=== PATIENT | female | born 1930 | race Caucasian/White ===

== ENCOUNTER 2019-09-23 12:54 | Emergency (ER) | payer MEDICARE ==
[~2019-09-23] VITALS: Ht 152.4 cm; Wt 44.0 kg
--- OUTSIDE RECORDS SUMMARY | ~2019-09-23 | XMS | Encounter Summary ---
Demographics + + + | Address | [address] | | | [place] [address] | + + + | Home Phone | | + + + | Preferred Language | Unknown | + + + | Marital Status | | + + + | Mosque Affiliation | Unknown | + + + | Race | Unknown | + + + | Ethnic Group | Unknown | + + + Author + + + | Author | [facility] | | | and [place] | + + + | Organization | [facility] | | | and [place] | + + + | Address | Unknown | + + + | Phone | Unavailable | + + + Support + + + + + | Name | Relationship | Address | Phone | + + + + + | Vicente Domínguez | NEGIN | [place] | | | | | [phone] | | + + + + + | Dank Domínguez | ECON | [address] | | | | | [place] | | | | | [address] | | + + + + + Care Team Providers + +------+ + | Care Pearler Name | Role | Phone | + +------+ + | Yfn Mitchell MD | PCP | | + +------+ + Reason for Referral Evaluate & Treat (Routine) +--------+ + + + + + | Status | Reason | Specialty | Diagnoses / | Referred By | Referred To | | | | | Procedures | Contact | Contact | +--------+ + + + + + | Closed | Specialty | Physical | Diagnoses | Seth, | | | | Services | Therapy | Lumbar | Dillon Stone MD | | | | Required | | spinal | [address] | | | | | | stenosis | [address] | | | | | | Lumbar | [place], | | | | | | degenerative | [place] [address] | | | | | | disc | Phone: | | | | | | disease | [phone] | | | | | | Spondylolist | Fax: | | | | | | hesis of | [phone] | | | | | | lumbar | | | | | | | region | | | | | | | Lumbar | | | | | | | radiculopath | | | | | | | y | | | +--------+ + + + + + Rehabilitation (Routine) +--------+ + + + + + | Status | Reason | Specialty | Diagnoses / | Referred By | Referred To | | | | | Procedures | Contact | Contact | +--------+ + + + + + | Closed | Specialty | Physical | Diagnoses | Ann, | Silvino, | | | Services | Medicine and | Lumbar | Dillon Stone MD | Kev Alexis MD | | | Required | Rehabilitatio | spinal | [address] | | | | n | stenosis | [address] | [address] [place] | | | | | | [place], | [place], [place] | | | | | | [place] [address] | [address] Phone: | | | | | | Phone: | [phone] | | | | | | [phone] | Fax: | | | | | | Fax: | [phone] | | | | | | [phone] | | +--------+ + + + + + Reason for Visit + + + | Reason | Comments | + + + | Back Pain | low | + + + | Leg Pain | right | + + + | Numbness | right foot | + + + | Tingling | right foot | + + + Encounter Details +--------+---------+ + + + | Date | Type | Department | Care Team | Description | +--------+---------+ + + + | 02/17/ | Office | [facility] | Dillon Ann, | Lumbar spinal | | 2012 | Visit | MEDICINE | [address] | stenosis (Primary | | | | RE[facility] | [place] | Dx); Lumbar | | | | [address] | [address] | degenerative disc | | | | [place] [address] | | disease; | | | | [phone] | | Spondylolisthesis of | | | | | | lumbar region; | | | | | | Lumbar radiculopathy | +--------+---------+ + + + Social History + +-------+ +--------+ + | Tobacco Use | Types | Packs/Day | Years | Date | | | | | Used | | + +-------+ +--------+ + | Former Smoker | | | 47 | Quit: 02/17/1993 | + +-------+ +--------+ + + + +---------+ + | Alcohol Use | Drinks/Week | oz/Week | Comments | + + +---------+ + | Yes | 8 Cans of beer | 8.0 | | + + +---------+ + + + + | Sex Assigned at | Date Recorded | | | | + + + | Not on file | | + + + + + + + | Job Start Date | Occupation | Industry | + + + + | Not on file | Not on file | Not on file | + + + + + + + + | Travel History | Travel Start | Travel End | + + + + + + | No recent travel history available. | + + documented as of this encounter Last Filed Vital Signs + + + + + | Vital Sign | Reading | Time Taken | Comments | + + + + + | Blood Pressure | 160/90 | 02/17/2013 9:13 AM | | | | | PDT | | + + + + + | Pulse | 92 | 02/17/2013 9:13 AM | | | | | PDT | | + + + + + | Temperature | - | - | | + + + + + | Respiratory Rate | 12 | 02/17/2013 9:13 AM | | | | | PDT | | + + + + + | Oxygen Saturation | - | - | | + + + + + | Inhaled Oxygen | - | - | | | Concentration | | | | + + + + + | Weight | 45.9 kg (101 lb 4.8 | 02/17/2013 9:13 AM | | | | oz) | PDT | | + + + + + | Height | 152.4 cm (5') | 02/17/2013 9:13 AM | | | | | PDT | | + + + + + | Body Mass Index | 19.78 | 02/17/2013 9:13 AM | | | | | PDT | | + + + + + documented in this encounter Patient Instructions Patient Instructions Dillon Ann MD - 02/17/2013 10:19 AM PDTPhysical therapy has been prescribed. Please participate in physical therapy. If you have not be contacted for an a ppointment with physical therapy within one week, please contact the clinic. Once you have completed physical therapy please continue the home exercise program as outline by physical therapy, indefinitely. Please take the prescribed medication Nortriptyline. Taper up the dose of the medication as directed. Stop tapering up the medication at the lowest effective dose. If you have side effects to the medication, reduce the dose of the medication to the last dose that you were able to tolerate without side effects. Please attend the injection appointment with Kev Dubois MD. If his office has not co ntacted you within one week, to schedule the injection, please contact my clinic. Your inje ction will be performed at [facility]. Please take note of weather your pain is significantly reduced in the hours immediately following the injecti on. Return to the clinic in 6 weeks. 1 0:20 AM PDT documented in this encounter Progress Notes Dillon Ann MD - 02/17/2013 10:23 AM PDTThis office note has been dictated. Job ID# [id number] signed by Dillon Ann MD at 02/17/2013 1:48 PM Nathalia Zapata RN - 02/17/2013 9:34 AM PDTLow back pain radiates to RLE with numbness/tinlging in foot/l eg. Dillon Heard MD - 02/17/2013 12:00 AM PDT PHYSICAL MEDICINE AND REHAB [address] [place] [address] FAX: [phone] OFFICE VISIT PHYSICAL MEDICINE REHABILITATION CONSULT CONSULT REQUESTED BY: Ba Mitchell MD DATE OF SERVICE: 02/17/2013 PATIENT IDENTIFICATION: An 82-year-old female with low back pain that radiates into the rig ht lower extremity. HISTORY OF PRESENT ILLNESS: Ms. Domínguez indicates that she has low back pain. She states th at the pain radiates into the right lower extremity. She denies pain, numbness, paresthesia or weakness in the left lower extremity. She states that her pain is worse in the legs gurjit n it is in the low back. She states that her current pain level is an 8/10 on a numerical p ain scale. She states that her pain is constant in timing. She states that her pain is diff icult to describe in quality. She states simply that it "just hurts." She states that her p ain is increased with prolonged sitting and standing. She states that her pain is reduced b y medication and lying down. In the right lower extremity she states that the pain travels over the buttock, the posterior thigh and then involves all aspects of the right foreleg an d the entire right foot. She states that her symptoms are strongest over the lateral aspect of the right ankle. She indicates that she has numbness and paresthesia in the top, bottom and lateral aspect of the right foot. She indicates that she also notes some tingling over the medial aspect of the right foot. She reports weakness in the right lower extremity, wh ich she describes as her leg "giving out." She reports constipation related to current pain medication. She indicates that she had an episode of bowel incontinence as a result of aly rrhea a few weeks ago. She states that it happened one time and has not subsequently recurr ed. ALLERGIES 1. ROMI INHIBITORS. 2. TRAMADOL. 3. SHE QUESTIONS WHETHER OR NOT SHE IS ALLERGIC TO CORTICOSTEROIDS. She indicates that she had a rash as a result of prednisone that she is taking. she had a recent shoulder steroid injection 4 weeks ago with methylprednisolone and no allergic reaction. On her allergy list. there is a question of whether or not she is allergic to corticosteroi ds. She indicates that she had some itching when she was taking prednisone. She did have re cent shoulder injection. Notes would indicate that there was a methylprednisolone in the in jection. She is able to tolerate this injection without any allergic reaction. I would ques tion whether or not she truly has allergies to steroid. I discussed with her that most jacqui viduals are not allergic to steroid. They may, however, be allergic to the preservative gurjit t is in steroid. CURRENT MEDICATIONS 1. Mevacor 20 mg at bedtime. 2. Meloxicam 15 mg daily. 3. Robaxin 500 mg 4 times per day. 4. Lopressor 25 mg 2 times daily. 5. Prilosec 20 mg every morning. 6. Oxycodone 5 mg q.4h. p.r.n.. PAST MEDICAL HISTORY 1. She has a history of hypertension. 2. Hypercholesterolemia. 3. Gastroesophageal reflux disease. PAST SURGICAL HISTORY She denies history of surgeries in the past. Review of medical record indicates history of tonsillectomy. FAMILY HISTORY: She reports that mother had history of emphysema. She denies any other med ical problems in the family. SOCIAL MEDICAL HISTORY: She indicates that she drinks approximately 8 cans of beer per week . She denies use of illicit drugs. She states that she used to smoke but that she quit in . She states that she smoked for 45 years. REVIEW OF SYSTEMS Ms. Domínguez denies nausea, vomiting, diarrhea, constipation, fever, chills, shortness of b reath, chest pain, skin breakdown, rash, incontinence of bowel or bladder, saddle anesthesia , lymph gland swelling, or unexplained weight loss. All other review of systems negative. PHYSICAL EXAMINATION VITAL SIGNS: Heart rate 92, respiratory rate 12, blood pressure 160/90. GENERAL: In no a cute distress, accompanied by . Alert and oriented to person, place, time and situat ion. HEENT: Extraocular muscles intact. Pupils equally reactive to light and accommodation. Scle concha clear. NECK: Normal range of motion for age. Axial loading test negative. Spurling's test negative . HEART: Regular rate and rhythm. No murmurs, no gallops. LUNGS: Clear to auscultation bilaterally. No wheezing, no crackles. ABDOMEN: Nontender, no ndistended. Positive for bowel sounds. BACK: Slight asymmetry. Seated straight leg raise po sitive on the right, negative on the left. Eleuterio's test negative bilaterally. EXTREMITIES: Exam reveals no clubbing, cyanosis or edema in all 4 extremities. There is atr ophy of the muscles in both lower extremities, predominantly the right quadriceps. NEUROLO GICAL: Exam demonstrates brisk reflexes over the patella and Achilles bilaterally. No clonu s to either ankle. Babinski is downgoing bilaterally. There is 4/5 strength with knee exten jostin on the right compared to 5/5 on the left. There is 4+/5 knee flexion strength bilatera lly. There is 4/5 ankle dorsiflexion on the right compared to 5/5 on the left. There is 4/5 extensor hallucis longus strength on the right compared to 5/5 on the left. Coordination is intact throughout. IMAGING: Lumbar spine MRI imaging personally reviewed by me. This imaging was reviewed in detail with Ms. Domínguez today. This imaging demonstrates multilevel degenerative disk disea se. There is disk herniations at L2-L3, L3-L4, L4-5 and L5-S1. There is severe central pal l stenosis at L3-L4 and L4-L5. There is moderate central canal stenosis at L2-L3. There is grade 1 anterior listhesis of L4 on L5. There is posterior osteophyte complex and ligamentu m hypertrophy posteriorly at L2-L3, L4-5 and L3-4 contributing towards central canal stenos is. There is severe neural foraminal narrowing at L3-L4 on the right and to a slightly less er degree at L2-L3 on the right. There is moderate central canal stenosis at right L4-5 and L5-S1. ASSESSMENT 1. LUMBAR SPINAL STENOSIS, ICD-9 724.02. 2. 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 3. 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 4. CLINICAL PRESENTATION OF LUMBAR RADICULOPATHY, RIGHT L4, L5, and S1, ICD-9 724.4. PLAN: Ms. Domínguez has significant degeneration of her spine contributing towards neurologic involvement. She has spinal stenosis and neural foraminal narrowing. Likely has a combinat ion of spinal stenosis and radiculopathy contributing towards her symptoms. She has rather significant weakness in the right lower extremity. She will participate in physical therapy with core stabilization of the spine. Preferably aquatic based exercise. Therapy will also have left lower extremity strengthening exercises in hopes of returning some of her strength. In an effort to reduce some of the radicular sy mptoms that she is experiencing in the right lower extremity she will be started on medicat ion nortriptyline. Hopefully this will offer her reduction in neuropathic pain. She will cruz ve bilateral L5-S1 transforaminal epidural steroid injections in hopes of treating lumbar s laura stenosis and her radicular symptoms on the right. She will return to the clinic in 6 weeks' time to review her response to these treatments. If symptoms persist, future treatment considerations may include the addition of gabapentin to her therapy and repeating epidural steroid injections. If she does not have improvement in her symptoms with conservative management, likely will request neurosurgery consult. If on her return appointment she has worsening weakness in the lower extremities, will more r apidly advance her to neurosurgery evaluation. Approximately 60 minutes was spent [id number] today with Ms. Domínguez, over half of which was spent formulating and discussing her medical treatment plan. Thank you for allowing me to be involved in the care of your patient. If you have any quest ions regarding the care of Ms. Domínguez, please do not hesitate to call. Dillon Ann Jr, MD GEM / PAP JOB #: [id number] cc: Ba Mitchell MD Tdocumented in this encounter Plan of Treatment + + +--------+ + + | Name | Type | Priori | Associated Diagnoses | Order Schedule | | | | ty | | | + + +--------+ + + | Ambulatory referral | Outpatient | Routin | Lumbar spinal | Ordered: 02/17/2013 | | to Physical Medicine | Referral | e | stenosis | | | Rehab | | | | | + + +--------+ + + | Ambulatory referral | Outpatient | Routin | Lumbar spinal | Ordered: 02/17/2013 | | to Physical Therapy | Referral | e | stenosis Lumbar | | | | | | degenerative disc | | | | | | disease | | | | | | Spondylolisthesis of | | | | | | lumbar region | | | | | | Lumbar radiculopathy | | + + +--------+ + + documented as of this encounter Visit Diagnoses + + | Diagnosis | + + | Lumbar spinal stenosis - Primary Spinal stenosis, lumbar region, without neurogenic | | claudication | + + | Lumbar degenerative disc disease Degeneration of lumbar or lumbosacral intervertebral | | disc | + + | Spondylolisthesis of lumbar region Acquired spondylolisthesis | + + | Lumbar radiculopathy Thoracic or lumbosacral neuritis or radiculitis, unspecified | + + documented in this encounter
--- OUTSIDE RECORDS SUMMARY | ~2019-09-23 | XMS | Encounter Summary ---
Demographics + + + | Address | [address] | | | [place] [address] | + + + | Home Phone | | + + + | Preferred Language | Unknown | + + + | Marital Status | | + + + | Buddhist Affiliation | Unknown | + + + | Race | Unknown | + + + | Ethnic Group | Unknown | + + + Author + + + | Author | [facility] | | | and [place] | + + + | Organization | [facility] | | | and [place] | + + + | Address | Unknown | + + + | Phone | Unavailable | + + + Support + + + + + | Name | Relationship | Address | Phone | + + + + + | Vicente Domínguez | NEGIN | [place] | | | | | [address] | | + + + + + | Dank Domínguez | ECON | [address] | | | | | [place] | | | | | [address] | | + + + + + Care Team Providers + +------+ + | Care Sales Attendant Name | Role | Phone | + +------+ + | Yfn Mitchell MD | PCP | | + +------+ + Reason for Visit + + + | Reason | Comments | + + + | Medication Reaction | | + + + Encounter Details +--------+ + + + + | Date | Type | Department | Care Team | Description | +--------+ + + + + | 02/28/ | Telephone | [facility] | Nathalia Morris, | Medication Reaction | | 2012 | | MEDICINE | RN | | | | | RE[address] | | | | | | [address] | | | | | | [place] [address] | | | | | | [phone] | | | +--------+ + + + + Social History + +-------+ [...] + + documented as of this encounter Plan of Treatment Not on filedocumented as of this encounter Visit Diagnoses Not on filedocumented in this encounter"
--- OUTSIDE RECORDS SUMMARY | ~2019-09-23 | XMS | Encounter Summary ---
Demographics + + + | Address | [address] | | | [place] [address] | + + + | Home Phone | | + + + | Preferred Language | Unknown | + + + | Marital Status | | + + + | Sabianist Affiliation | Unknown | + + + | Race | Unknown | + + + | Ethnic Group | Unknown | + + + Author + + + | Author | [facility] | | | and [place] | + + + | Organization | [facility] | | | and [place] | + + + | Address | Unknown | + + + | Phone | Unavailable | + + + Support + + + + + | Name | Relationship | Address | Phone | + + + + + | Vicente Domínguez | NEGIN | [place] | | | | | [address] | | + + + + + | Dank Domínguez | ECON | [address] | | | | | [place] | | | | | [address] | | + + + + + Care Team Providers + +------+ + | Care Protection Engineer Name | Role | Phone | + +------+ + | Yfn Mitchell MD | PCP | | + +------+ + Reason for Visit + + + | Reason | Comments | + + + | Back Pain | no pain at this time | + + + Encounter Details +--------+---------+ + + + | Date | Type | Department | Care Team | Description | +--------+---------+ + + + | 12/27/ | Office | [facility] | Dillon Ann, | Lumbar spinal | | 2013 | Visit | MEDICINE | [address] | stenosis (Primary | | | | REH[address] | [place] | Dx); Lumbar | | | | [address] | [address] | radiculopathy; | | | | [place] [address] | | Lumbar degenerative | | | | [phone] | | disc disease; | | | | | | Spondylolisthesis of | | | | | | lumbar region | +--------+---------+ + + + Social History [...] + + + | Blood Pressure | 124/64 | 12/27/2013 9:40 AM | | | | | PST | | + + + + + | Pulse | 70 | 12/27/2013 9:40 AM | | | | | PST | | + + + + + | Temperature | - | - | | + + + + + | Respiratory Rate | 20 | 12/27/2013 9:40 AM | | | | | PST | | + + + + + | Oxygen Saturation | - | - | | + + + + + | Inhaled Oxygen | - | - | | | Concentration | | | | + + + + + | Weight | 49 kg (108 lb) | 12/27/2013 9:40 AM | | | | | PST | | + + + + + | Height | 152.4 cm (5') | 12/27/2013 9:40 AM | | | | | PST | | + + + + + | Body Mass Index | 21.09 | 12/27/2013 9:40 AM | | | | | PST | | + + + + + documented in this encounter Patient Instructions Patient Instructions Dillon Ann MD - 12/27/2013 10:18 AM PSTContinue Gabapentin 300 m g two capsules by mouth three times per day. Continue home exercise program as outlined by physical therapy. Follow up with your primary doctor for future refills of gabapentin. Return to the clinic as needed in the future should symptoms return. documented in this encounter Progress Notes Dillon Ann MD - 12/27/2013 10:20 AM PSTThis office note has been dictated. Job ID# [id number] signed by Dillon Ann MD at 12/27/2013 10:33 AM Renee Higgins RN - 12/27/2013 9:42 AM PSTPatient states 0/10 pain to lower back. Dillon Cerrato MD - 12/27/2013 12:00 AM [facility] PHYSICAL MEDICINE AND REHAB [address] [place] [address] FAX: [phone] OFFICE VISIT PHYSICAL MEDICINE REHABILITATION PROGRESS NOTE CONSULT REQUESTED BY: Yfn Mitchell MD DATE OF SERVICE: 12/27/2013 PATIENT IDENTIFICATION: An 83-year-old female with lumbar spinal stenosis. HISTORY OF PRESENT ILLNESS: The patient was last seen by me 06/28/2013. At that time her s ymptoms were minimal. Her symptoms were well controlled with medication and therapy. She re turns to the clinic today to review management of symptoms and for medication refill. The patient indicates that she is doing exceedingly well at this time. She reports that her current pain level is a 0/10 on a numerical pain scale. She indicates that she may have so me pain if she misses gabapentin dose. She indicates that when she has missed gabapentin in the past she experienced some pain. She indicates that as long as she takes gabapentin rou tinely that she has no pain. She denies any side effects to gabapentin. She denies dizzines s, sedation, swelling, weight change. She denies numbness, paresthesia or weakness in eithe r lower extremity. She denies bowel or bladder incontinence. She denies saddle anesthesia. Previously, she had some weakness in the lower extremities, which has improved since partic ipating in physical therapy. She notes that she has had returned strength and muscle growth in the lower extremities since participating in routine exercise program. She does a home exercise program on a daily basis. She indicates that essentially she has been back pain-fr ee for more than 3 months. ALLERGIES 1. ROMI INHIBITORS. 2. CORTICOSTEROIDS. 3. TRAMADOL. CURRENT MEDICATIONS 1. Gabapentin 300 mg, 2 tablets 3 times per day. 2. Calcium carbonate with vitamin D. 3. Vitamin D3. 4. Lovastatin 20 mg nightly. 5. Lopressor 25 mg 2 times daily. 6. Multivitamin 1 tablet daily. 7. Prilosec 20 mg every morning. REVIEW OF SYSTEMS: Ms. Domínguez denies nausea, vomiting, diarrhea, constipation, fever, chil ls, shortness of breath, chest pain, skin breakdown, rash, incontinence of bowel or bladder , saddle anesthesia, lymph gland swelling, or unexplained weight loss. All other review of systems negative. PHYSICAL EXAMINATION VITAL SIGNS: Heart rate 70, respiratory rate 20, blood pressure 124/64, weight 108 pounds, height 5 feet. GENERAL: No acute distress. Alert and oriented to person, place, time and situation. Accom panied by . Smiling, happy. HEENT: Extraocular muscles intact. Sclerae clear. NECK: Normal range of motion for age. Spurling's test negative. Axial loading test negative . BACK: Slight asymmetry. No tenderness to palpation. Seated straight leg raise negative b ilaterally. Eleuterio's test negative bilaterally. EXTREMITIES: Exam reveals no clubbing, cyanosis or edema in all 4 extremities. There appear s to be increased size of the gastroc muscles bilaterally. She indicates that she has been working out her legs on a daily basis. NEUROLOGICAL: Exam demonstrates intact memory, concentration and speech. Gait normal. Sensa tion intact to light touch and pinprick in lower extremities. Normal strength in lower extr emities with hip flexion, knee flexion, knee extension, ankle dorsiflexion, ankle plantar f lexion. Reflexes 1+ over patellae and Achilles bilaterally. No clonus to either ankle. DATABASE: No new imaging or laboratory data available for review at this time. IMPRESSION 1. LUMBAR SPINAL STENOSIS, ICD-9 724.02. 2. LUMBAR RADICULOPATHY, ICD-9 724.4. 3. 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 4. 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 PLAN: Ms. Domínguez's symptoms are currently quiescent. She has 0 pain out of 10. She has no complaints at this time. She has no weakness, no numbness. No problems with bowel or bladde r control. She reports improving lower extremity strength with home exercise program. At this point she will continue gabapentin. She should stay on this medication indefinitely . She indicates that when she misses a dose of the medication her pain is worse. With the medication she has no pain. She will continue gabapentin 300 mg 2 capsules 3 times per day. She was given a 3-month supply with 1 refill, in total 6 months' worth of medication. She i s instructed to follow up with Dr. Mitchell in the future for refills of her medication. She wa s instructed to continue home exercise program as outlined by Physical Therapy, on an indef inite basis. At this point there is no routine followup scheduled with the patient, mostly because she is doing so well. However, should she have exacerbation of symptoms, return of pain, weakness in the future, she was instructed that she should return to the clinic for f urther evaluation. She may return to the clinic as needed in the future. Approximately 20 minutes was spent [id number] today with Ms. Domínguez, over half of which was spent formulating and discussing her medical treatment plan. Thank you for allowing me to be involved in the care of your patient. If you have any questions regarding the care of Ms. Domínguez please do not hesitate to call. Dillon Ann Jr, MD [place] / YE JOB #: [id number] cc: Ba Mitchell MD Tdocumented in this encounter Plan of Treatment Not on filedocumented as of this encounter Visit Diagnoses + + | Diagnosis | + + | Lumbar spinal stenosis - Primary Spinal stenosis, lumbar region, without neurogenic | | claudication | + + | Lumbar radiculopathy Thoracic or lumbosacral neuritis or radiculitis, unspecified | + + | Lumbar degenerative disc disease Degeneration of lumbar or lumbosacral intervertebral | | disc | + + | Spondylolisthesis of lumbar region Acquired spondylolisthesis | + + documented in this encounter"
--- OUTSIDE RECORDS SUMMARY | ~2019-09-23 | XMS | Encounter Summary ---
Demographics + + + | Address | [address] | | | [place] [address] | + + + | Home Phone | | + + + | Preferred Language | Unknown | + + + | Marital Status | | + + + | Alevism Affiliation | Unknown | + + + | Race | Unknown | + + + | Ethnic Group | Unknown | + + + Author + + + | Author | [facility] | | | and [place] | + + + | Organization | [facility] | | | and [place] | + + + | Address | Unknown | + + + | Phone | Unavailable | + + + Support + + + + + | Name | Relationship | Address | Phone | + + + + + | Vicente Domínguez | NEGIN | [place] | | | | | [address] | | + + + + + | Dank Domínguez | ECON | [address] | | | | | [place] | | | | | [address] | | + + + + + Care Team Providers + +------+ + | Care In Store Demonstrator Name | Role | Phone | + [...] | | | | | | [place] [address] | | | | | | [phone] | | | +--------+ + + + [...]
--- OUTSIDE RECORDS SUMMARY | ~2019-09-23 | XMS | Encounter Summary ---
Demographics + + + | Address | [address] | | | [place] [address] | + + + | Home Phone | | + + + | Preferred Language | Unknown | + + + | Marital Status | | + + + | Sikh Affiliation | Unknown | + + + | Race | Unknown | + + + | Ethnic Group | Unknown | + + + Author + + + | Author | [facility] | | | and [place] | + + + | Organization | [facility] | | | and [place] | + + + | Address | Unknown | + + + | Phone | Unavailable | + + + Support + + + + + | Name | Relationship | Address | Phone | + + + + + | Vicente Domínguez | NEGIN | [place] | | | | | [address] | | + + + + + | Dank Domínguez | ECON | [address] | | | | | [place] | | | | | [address] | | + + + + + Care Team Providers + +------+ + | Care Stock Checker Name | Role | Phone | + +------+ + | Rafaela Ivey NP | PCP | | + +------+ + Encounter Details +--------+ + + + + | Date | Type | Department | Care Team | Description | +--------+ + + + + | 02/13/ | Orders Only | [facility] | Zay Mccartney MD | Low back pain | | 2012 | | NEUROSURGERY [address] | [address] | (Primary Dx); Right | | | | [address] | [place] [address] | leg pain | | | | [place] | [phone] | | | | | [address] | | | | | | [phone] | | | +--------+ + + + + Social History + +-------+ +--------+------+ | Tobacco Use | Types | Packs/Day | Years | Date | | | | | Used | | + +-------+ +--------+------+ | Never Assessed | | | | | + +-------+ +--------+------+ + + + | Sex Assigned at [...] as of this encounter Plan of Treatment + +---------+--------+ + + | Name | Type | Priori | Associated Diagnoses | Order Schedule | | | | ty | | | + +---------+--------+ + + | XR Lumbar Spine 4 + | Imaging | Routin | Low back pain | Expected: | | Vw | | e | Right leg pain | 02/13/2013, Expires: | | | | | | 02/13/2014 | + +---------+--------+ + + documented as of this encounter Visit Diagnoses + + | Diagnosis | + + | Low back pain - Primary Lumbago | + + | Right leg pain Pain in limb | + + documented in this encounter"
--- OUTSIDE RECORDS SUMMARY | ~2019-09-23 | XMS | Encounter Summary ---
Demographics + + + | Address | [address] | | | [place] [address] | + + + | Home Phone | | + + + | Preferred Language | Unknown | + + + | Marital Status | | + + + | Congregational Affiliation | Unknown | + + + | Race | Unknown | + + + | Ethnic Group | Unknown | + + + Author + + + | Author | [facility] | | | and [place] | + + + | Organization | [facility] [...] [place] | | | | | [address] | | + + + + + | Dank Domínguez | ECON | [address] | | | | | [place] | | | | | [address] | | + + + + + Care Team Providers + +------+ + | Care Flaring Machine Operator Name | Role | Phone | + +------+ + | Yfn Mitchell MD | PCP | | + +------+ + Reason for Visit + + + | Reason | Comments | + + + | Hip Pain | right | + + + Encounter Details +--------+---------+ + + + | Date | Type | Department | Care Team | Description | +--------+---------+ + + + | 06/28/ | Office | [facility] | Dillon Ann, | Lumbar spinal | | 2012 | Visit | MEDICINE | [address] | stenosis (Primary | | | | REH[address] | [place] | Dx); Lumbar | | | | [address] [place] | [address] | radiculopathy; | | | | [place] [address] | | Lumbar degenerative | | | | [phone] | | disc disease; | | | [...] + + + | Blood Pressure | 120/70 | 06/28/2013 9:32 AM | | | | | PDT | | + + + + + | Pulse | 64 | 06/28/2013 9:32 AM | | | | | PDT | | + + + + + | Temperature | - | - | | + + + + + | Respiratory Rate | 17 | 06/28/2013 9:32 AM | | | | | PDT | | + + + + + | Oxygen Saturation | - | - | | + + + + + | Inhaled Oxygen | - | - | | | Concentration | | | | + + + + + | Weight | 45.4 kg (100 lb) | 06/28/2013 9:32 AM | | | | | PDT | | + + + + + | Height | 152.4 cm (5') | 06/28/2013 9:32 AM | | | | | PDT | | + + + + + | Body Mass Index | 19.53 | 06/28/2013 9:32 AM | | | | | PDT | | + + + + + documented in this encounter Patient Instructions Patient Instructions Dillon Ann MD - 06/28/2013 9:53 AM PDTContinue the exercises ou tlined by physical therapy on a routine basis, indefinitely. Continue Gabapentin at current dose. Ask that future lab results also be sent to Dr. Dillon Ann MD (.)'s office. Return the clinic in 6 months or as needed.Electronically signed by Dillon Ann MD at 0 06/28/2013 9:54 AM PDT documented in this encounter Progress Notes Dillon Ann MD - 06/28/2013 9:55 AM PDTThis office note has been dictated. Job ID# [id number] signed by Dillon Ann MD at 06/28/2013 10:03 AM Renee Gabriel RN - 06/28/2013 9:35 AM PDTPatient complains of 4/10 pain to right hip. States she compl eted PT, and now does exercises at home. Patient has discontinued oxycodone. Dillon Heard MD - 06/28/2013 12: 00 AM PDT PHYSICAL MEDICINE AND REHAB [address] [place] [address] FAX: [phone] OFFICE VISIT PHYSICAL MEDICINE REHABILITATION PROGRESS NOTE CONSULT REQUESTED BY: Ba Mitchell MD DATE OF SERVICE: 06/28/2013 PATIENT IDENTIFICATION: An 82-year-old female with lumbar spinal stenosis. HISTORY OF PRESENT ILLNESS: Ms. Domínguez was last seen by me 04/26/2013. At that time it was felt that she had lumbar spinal stenosis, lumbar radiculopathy and lumbar degenerative dis k disease. She was prescribed increased dose of gabapentin. She was prescribed a course of physical therapy. She was asked to take docusate to manage constipation while on oxycodone. She returns to the clinic today to review management of her symptoms. Ms. Domínguez indicates that her pain is dramatically better. She has been able to discontinu e using methocarbamol. She has not taken any methocarbamol in over a month. She has been ab le to discontinue oxycodone. She has not taken any oxycodone in over a month. She states th at her pain is well controlled. She has been able to discontinue docusate since the constip ation resolved after oxycodone was discontinued. She reports that her pain is improved comp ared to when she was seen 2 months ago. She states that her current pain level is a 4/10 on a numerical pain scale. She states that her pain is constant in timing. She states that he r pain is dull in quality. She states that her pain is currently "tolerable." She has been able to stop using her single point cane. She reports that on rare occasion, maybe 1 day pe r week, she may have some paresthesia within her right foot, which only lasts minutes. She indicates that currently she has no back pain. She states that she has pain primarily locat ed in the right leg, usually in the thigh. Pain is increased by sitting. Pain is reduced by standing, walking, medication and being active. Overall she states that physical therapy has been an extreme help combined with current medication gabapentin. She denies numbness, weakness, bowel or bladder incontinence or dysfunction or saddle anesthesia. ALLERGIES 1. ROMI INHIBITORS. 2. CORTICOSTEROIDS. 3. TRAMADOL. CURRENT MEDICATIONS 1. Calcium with vitamin D. 2. Vitamin D3. 3. Gabapentin 300 mg 2 Capsules 3 times per day. 4. Mevacor 20 mg nightly. 5. Lopressor 25 mg 2 times daily. 6. Multivitamin once daily. 7. Omeprazole 20 mg every morning. REVIEW OF SYSTEMS Ms. Domínguez denies nausea, vomiting, diarrhea, constipation, fever, chills, shortness of b reath, chest pain, skin breakdown, rash, incontinence of bowel or bladder, saddle anesthesia , lymph gland swelling, edema, or unexplained weight loss. All other review of systems nega tive. PHYSICAL EXAMINATION VITAL SIGNS: Heart rate 64, respiratory rate 17, blood pressure 120/70, weight 100 pounds, height 5 feet. GENERAL: In no acute distress. Alert and oriented to person, place, time and situation. HE ENT: Extraocular muscles intact. Sclerae clear. NECK: Normal range of motion. Spurling's test negative. HEART: Regular rate and rhythm. No murmurs, no gallops. LUNGS: Clear to auscultation bilaterally. No wheezing, no crackles. ABDOMEN: Nontender. Po sitive for bowel sounds. BACK: Slight asymmetry. No focal tenderness to palpation. Seated straight leg raise negativ e bilaterally. Eleuterio's test negative. EXTREMITIES: Exam reveals no clubbing, cyanosis or edema. NEUROLOGICAL: Exam demonstrates stable strength in lower extremities. Gait steady. Sensation intact to light touch and pinp jamshid in both lower extremities. Reflexes 1+ over patellae and Achilles bilaterally. No clon us to either ankle. Her affect is normal, full. She is smiling, happy throughout entire his tory and exam. DATABASE: There is no new imaging or laboratory data available for review at this time. IMPRESSION 1. LUMBAR SPINAL STENOSIS, ICD-9 724.02. 2. LUMBAR RADICULOPATHY, ICD-9 724.4. 3. 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 4. SPONDYLOLISTHESIS IN LUMBAR SPINE, ICD-9 738.4. PLAN: Ms. Domínguez was instructed to continue home exercise program as outlined by physical therapy on a routine basis indefinitely. She may continue gabapentin routinely indefinitely as well. She was prescribed Gabapentin 300 mg 2 capsules 3 times per day. She is prescribe d #180 with 5 refills. She reports that she does routine laboratory tests with Dr. Stephen agudelo every 6 months. She is asked to make sure that a copy of these laboratory results were al so sent to my office. She will return to the clinic in 6 months' time to review her pain ma nagement, for refill of medication and to review laboratory testing to make sure that renal function remains stable and so dose adjustment is not necessary. She is instructed that hector agudelo may return to the clinic earlier should she have an exacerbation of symptoms. Approximately 25 minutes was spent cuxg-tq-tyqg today with Ms. Domínguez, over half of which was spent formulating and discussing her medical treatment plan. Thank you for allowing me to be involved in the care of your patient. If you have any quest ions regarding the care of Ms. Domínguez, please do not hesitate to call. Dillon Ann Jr, MD [facility] / [facility] JOB #: [id number] signed by Dillon Ann MD at 06/29/2013 9:22 AM PDTdocumen ritesh in this encounter Plan of Treatment Not [...] spondylolisthesis | + + documented in this encounter
--- OUTSIDE RECORDS SUMMARY | ~2019-09-23 | XMS | Encounter Summary ---
Demographics + + + | Address | [address] | | | [place] [address] | + + + | Home Phone | | + + + | Preferred Language | Unknown | + + + | Marital Status | | + + + | Caodaism Affiliation | Unknown | + + + | Race | Unknown | + + + | Ethnic Group | Unknown | + + + Author + + + | Author | [facility] | | | and [place] | + + + | Organization | [facility] | | | and [place] | + + + | Address | Unknown | + + + | Phone | Unavailable | + + + Support + + + + + | Name | Relationship | Address | Phone | + + + + + | Vicente Domínguez | NEGIN | [place] | | | | | [address] | | + + + + + | Dank Domínguez | ECON | [address] | | | | | [place] | | | | | [address] | | + + + + + Care Team Providers + +------+ + | Care Testing Projects Administrator Name | Role | Phone | + +------+ + | Yfn Mitchell MD | PCP | | + +------+ + Reason for Visit +--------+ + | Reason | Comments | +--------+ + | Other | APPOINTMENT CANCELLATION | +--------+ + Encounter Details +--------+ + + + + | Date | Type | Department | Care Team | Description | +--------+ + + + + | 02/17/ | Telephone | [facility] | Sami Mc | Other (APPOINTMENT | | 2012 | | NEUROSURGERY [address] | [address] | CANCELLATION) | | | | [facility] [address] | [address] | | | | | [place], [place] | [place] [address] | | | | | [address] | [phone] | | | | | [phone] | | | +--------+ + + + [...]
--- OUTSIDE RECORDS SUMMARY | ~2019-09-23 | XMS | Encounter Summary ---
Demographics + + + | Address | [address] | | | [place] [address] | + + + | Home Phone | | + + + | Preferred Language | Unknown | + + + | Marital Status | | + + + | Congregation Affiliation | Unknown | + + + | Race | Unknown | + + + | Ethnic Group | Unknown | + + + Author + + + | Author | [facility] | | | and [place] | + + + | Organization | [facility] | | | and [place] | + + + | Address | Unknown | + + + | Phone | Unavailable | + + + Support + + + + + | Name | Relationship | Address | Phone | + + + + + | Vicente Domínguez | NEGIN | [place] | | | | | [address] | | + + + + + | Dank Domínguez | ECON | [address] | | | | | [place] | | | | | [address] | | + + + + + Care Team Providers + +------+ + | Care Pharmacist In Charge Name | Role | Phone | + [...] | | | | | stenosis | [address] | | | | | | Lumbar | [place], | | | | | | degenerative | [place] [address] | | | | | | disc | Phone: | | | | | | disease | [phone] | | | | | | Spondylolist | Fax: | | | | | | hesis of | [phone] | | | | | | lumbar [...] | | | n | stenosis | [address] | [place] | | | | | | [place], | [place], [place] | | | | | | [place] [address] | [address] Phone: | | | | | | Phone: | [phone] | | | | | | [phone] | Fax: | | | | | | Fax: | [phone] | | | | | | [phone] | | +--------+ + + + + [...] + + | 02/17/ | Office | [facility] | Dillon Ann, | Lumbar spinal | | 2012 | Visit | MEDICINE | [address] | stenosis (Primary | | | | REH[address]ILIT[address] | [place] | Dx); Lumbar | | | | [address] | [address] | degenerative disc | | | | [place] [address] | | disease; | | | | [phone] | | Spondylolisthesis of | | | [...] Your inje ction will be performed at [facility]. Please take note of weather your pain is significantly reduced in the hours immediately following the injecti on. Return to the clinic in 6 weeks. 1 0:20 AM PDT documented in this encounter Progress Notes Dillon Ann MD - 02/17/2013 10:23 AM PDTThis office note has been dictated. Job ID# [id number] signed by Dillon Ann MD at 02/17/2013 1:48 PM Nathalia Zapata RN - 02/17/2013 9:34 AM PDTLow back pain radiates to RLE with numbness/tinlging in foot/l eg. Diloln Heard MD - 02/17/2013 12:00 AM PDT PHYS[facility] MEDICINE AND REHAB [address] [place] [address] FAX: [phone] OFFICE VISIT PHYSICAL MEDICINE REHABILITATION CONSULT CONSULT [...] neurosurgery evaluation. Approximately 60 minutes was spent [id number] today with Ms. Domínguez, over half of which was spent formulating and discussing her medical treatment plan. Thank you for allowing me to be involved in the care of your patient. If you have any quest ions regarding the care of Ms. Domínguez, please do not hesitate to call. Dillon Ann Jr, MD [facility] JOB #: [id number] cc: Ba Mitchell MD Tdocumented in this [...]
--- OUTSIDE RECORDS SUMMARY | ~2019-09-23 | XMS | Clinical Summary ---
Demographics + + + | Address | [address] | | | [place] [address] | + + + | Home Phone | | + + + | Preferred Language | Unknown | + + + | Marital Status | | + + + | Baptism Affiliation | Unknown | + + + | Race | Unknown | + + + | Ethnic Group | Unknown | + + + Author + + + | Author | [facility] | | | and [place] | + + + | Organization | [facility] | | | and [place] | + + + | Address | Unknown | + + + | Phone | Unavailable | + + + Support + + + + + | Name | Relationship | Address | Phone | + + + + + | Vicente Domínguez | NEGIN | [place] | | | | | [address] | | + + + + + | Dank Domínguez | ECON | [address] | | | | | [place] | | | | | [address] | | + + + + + Care Team Providers + +------+ + | Care Interpersonal Communications Professor Name | Role | Phone | + +------+ + | Yfn Mitchell MD | PCP | | + +------+ + Allergies + + + + + + | Active Allergy | Reactions | Severity | Noted | Comments | | | | | Date | | + + + + + + | Guicho Inhibitors | | | 02/18/20 | | | | | | 13 | | + + + + + + | Corticosteroids | | | 02/18/20 | Hypertesnion/ rash | | | | | 13 | | + + + + + + | Tramadol | | | 02/18/20 | Nausea/vomiting | | | | | 13 | | + + + + + + Medications + + + +---------+------+------+-------+ | Medication | Sig | Dispensed | Refills | Star | End | Statu | | | | | | t | Date | s | | | | | | Date | | | + + + +---------+------+------+-------+ | lovastatin | Take 20 mg by mouth | | 0 | | | Activ | | (MEVACOR) 20 mg | nightly. | | | | | e | | tablet | | | | | | | + + + +---------+------+------+-------+ | omeprazole | Take 20 mg by mouth | | 0 | | | Activ | | (PRILOSEC) 20 mg | every morning | | | | | e | | capsule | (before breakfast). | | | | | | + + + +---------+------+------+-------+ | metoprolol | Take 25 mg by mouth | | 0 | | | Activ | | tartrate (LOPRESSOR) | 2 times daily. | | | | | e | | 25 mg tablet | | | | | | | + + + +---------+------+------+-------+ | multivitamin | Take 1 tablet by | | 0 | | | Activ | | tablet | mouth Daily. | | | | | e | + + + +---------+------+------+-------+ | cholecalciferol | Take 1,000 Units by | | 0 | | | Activ | | (VITAMIN D-3) 1,000 | mouth Daily. | | | | | e | | units capsule | | | | | | | + + + +---------+------+------+-------+ | Calcium | Take by mouth 2 | | 0 | | | Activ | | Carbonate-Vitamin D | times daily. | | | | | e | | (CALCIUM + D PO) | | | | | | | + + + +---------+------+------+-------+ | gabapentin | 2 capsules by mouth | 540 | 1 | 03/0 | | Activ | | (NEURONTIN) 300 mg | three times per day | capsule | | 5/20 | | e | | capsuleIndications: | | | | 14 | | | | Lumbar spinal | | | | | | | | stenosis, Lumbar | | | | | | | | radiculopathy | | | | | | | + + + +---------+------+------+-------+ Active Problems + + + | Problem | Noted Date | + + + | Lumbar spinal stenosis | 02/17/2013 | + + + | Lumbar degenerative disc disease | 02/17/2013 | + + + | Spondylolisthesis of lumbar region | 02/17/2013 | + + + + + | Overview: L4-5 | + + + + + | Lumbar radiculopathy | 02/17/2013 | + + + + + | Overview: clinical right L4, L5, S1 | + + + +---+ | Acid reflux | | + +---+ Family History + + +------+ + | Medical History | Relation | Name | Comments | + + +------+ + | Other (see comment) | Mother | | emphysema | + + +------+ + + +------+--------+ + | Relation | Name | Status | Comments | + +------+--------+ + | Mother | | | | + +------+--------+ + Social History + +-------+ +--------+ + [...] recent travel history available. | + + Last Filed Vital Signs + + + [...] | | + + + + + Plan of Treatment + + + + + | Health Maintenance | Due Date | Last Done | Comments | + + + + + | Vaccine: | | | | | Dtap/Tdap/Td (1 - | 1 | | | | Tdap) | | | | + + + + + | Vaccine: Zoster (1 | | | | | of 2) | 2 | | | + + + + + | Vaccine: | | | | | Pneumococcal 65+ (1 | 7 | | | | of 2 - PCV13) | | | | + + + + + | Vaccine: Influenza | | | | | (#1) | 9 | | | + + + + + Results Not on filefrom Last 3 Months Insurance + +--------+ +--------+ +---------+--------+ | Payer | Benefi | Subscriber | Effect | Phone | Address | Type | | | t Plan | ID | racheal | | | | | | / | | Dates | | | | | | Group | | | | | | + +--------+ +--------+ +---------+--------+ | MEDICARE | MEDICA | [id number] | 01/24/20 | [phone] | | Medica | | | RE | | 13-Pre | 5 | | re | | | PART A | | sent | | | | | | AND B | | | | | | + +--------+ +--------+ +---------+--------+ | AARP | AARP | [id number] | | [phone] | | Indemn | | | MDCR | | 013-Pr | 0 | | ity | | | SUPPL | | esent | | | | + +--------+ +--------+ +---------+--------+ + +--------+ +--------+ + + | Guarantor Name | Accoun | Relation to | Date | Phone | Billing Address | | | t Type | Patient | of | | | | | | | | | | + +--------+ +--------+ + + | Kassie Domínguez Bertha | Person | Self | [birth year] | [address] | | | al/Fam | | 1930 | [phone] | [place] [address] | | | kat | | | 6 (Home) | | + +--------+ +--------+ + + Advance Directives + + + + + | Type | Date Recorded | Patient | Explanation | | | | Host/Hostess | | + + + + + | Power of | | | | | Pathology Lab Technician | | | | + + + + + | Advance | | | | | Directive | | | | + + + + +"
--- OUTSIDE RECORDS SUMMARY | ~2019-09-23 | XMS | Encounter Summary ---
Demographics + + + | Address | [address] | | | [place] [address] | + + + | Home Phone | | + + + | Preferred Language | Unknown | + + + | Marital Status | | + + + | Lutheran Affiliation | Unknown | + + + | Race | Unknown | + + + | Ethnic Group | Unknown | + + + Author + + + | Author | [facility] | | | and [place] | + + + | Organization | [facility] | | | and [place] | + + + | Address | Unknown | + + + | Phone | Unavailable | + + + Support + + + + + | Name | Relationship | Address | Phone | + + + + + | Vicente Domínguez | NEGIN | [place] | | | | | [address] | | + + + + + | Dank Domínguez | ECON | [address] | | | | | [place] | | | | | [address] | | + + + + + Care Team Providers + +------+ + | Care Literary Agent Name | Role | Phone | + +------+ + | Yfn Mitchell MD | PCP | | + +------+ + Reason for Visit + + + | Reason | Comments | + + + | Back Pain | low | + + + Encounter Details +--------+---------+ + + + | Date | Type | Department | Care Team | Description | +--------+---------+ + + + | 03/15/ | Office | [facility] | Dillon Ann, | Lumbar spinal | | 2012 | Visit | MEDICINE | [address] | stenosis (Primary | | | | [address] | [place] | Dx); Lumbar | | | | [address] | [address] | degenerative disc | | | | [place] [address] | | disease; Lumbalgia; | | | | [phone] | | Lumbar radiculopathy | +--------+---------+ + [...] + + + | Blood Pressure | 150/86 | 03/15/2013 10:07 AM | | | | | PDT | | + + + + + | Pulse | 72 | 03/15/2013 10:07 AM | | | | | PDT | | + + + + + | Temperature | - | - | | + + + + + | Respiratory Rate | 12 | 03/15/2013 10:07 AM | | | | | PDT | | + + + + + | Oxygen Saturation | - | - | | + + + + + | Inhaled Oxygen | - | - | | | Concentration | | | | + + + + + | Weight | 44.3 kg (97 lb 9.6 | 03/15/2013 10:07 AM | | | | oz) | PDT | | + + + + + | Height | 152.4 cm (5') | 03/15/2013 10:07 AM | | | | | PDT | | + + + + + | Body Mass Index | 19.06 | 03/15/2013 10:07 AM | | | | | PDT | | + + + + + documented in this encounter Patient Instructions Patient Instructions Dillon Ann MD - 03/15/2013 11:04 AM PDTContinue physical therapy . Please take the prescribed medication Gabapentin. Taper up the dose of the medication as di rected. Stop tapering up the medication at the lowest effective dose. If you have side eff ects to the medication, reduce the dose of the medication to the last dose that you were abl e to tolerate without side effects. Return to the clinic in 5 weeks. documented in this encounter Progress Notes Dillon Ann MD - 03/15/2013 10:28 AM PDTThis office note has been dictated. Job ID# [id number] signed by Dillon Ann MD at 03/15/2013 3:11 PM Nathalia Zapata RN - 03/15/2013 10:12 AM PDTLow back pain improved slightly. Dillon Heard MD - 03/15/2013 12:00 AM PDT PHYSICAL MEDICINE AND REHAB [address] [place] [address] FAX: [phone] OFFICE VISIT PHYSICAL MEDICINE REHABILITATION PROGRESS NOTE REQUESTING: Ba Mitchell MD PATIENT IDENTIFICATION: An 82-year-old female with low back pain and lumbar spinal stenosis . HISTORY OF PRESENT ILLNESS: Correspondence received from Dr. Lonnie Mitchell MD, was reviewed. Dr. Mitchell reviewed that he has known Ms. Domínguez for over 25 years, that she is very active and that she has never previously required opiate medications, but recently has had signif icant enough pain requiring oxycodone to manage her pain. Ms. Domínguez was last seen by me on February 17, 2013. At that time it was felt that her pain w as primarily the result of lumbar spinal stenosis and lumbar radiculopathy. She was sent fo lumbar epidural steroid injection. Specifically, she had bilateral L5-S1 epidural steroid injections. Ms. Domínguez reports that her pain is substantially improved. She states that epidural stero id injections seemed to significantly reduce her pain. Previously her pain was constant. jammie reports that her pain is now intermittent. She reports that she was previously having to take oxycodone routinely throughout the day. She indicates that she has substantially cut b ack on her oxycodone use. She indicates that last night she did not need to take any oxycod one at all, which is a first in some time. She states that her current pain level is a 4 ou t of 10 on a numerical pain scale. She states her pain is constant in timing. She states th at last night she had 0 out of 10 pain. She states the pain is over the central low back. P ain radiates into the right lower extremity over the posterior thigh, posterior calf and in to the lateral aspect of the foot over an S1 dermatome. Her pain is increased by physical t herapy, sitting too long, standing too long. Pain is reduced by lying down and medication. She reports some paresthesia over the lateral aspect of her right foot as well. When she wa s last seen, she was prescribed medication, nortriptyline. This medication has been discont inued. She was unable to tolerate side effects from the medication. She has never been on m edication, gabapentin. ALLERGIES 1. ROMI INHIBITORS. 2. CORTICOSTEROIDS. 3. TRAMADOL. CURRENT MEDICATIONS 1. Mevacor 20 mg at bedtime. 2. Mobic she takes p.r.n. 3. Oxycodone 5 mg, on average 1 tablet 4 times per day. 4. Prilosec 20 mg daily. 5. Lopressor 25 mg 2 times per day. 6. Robaxin 500 mg p.r.n. REVIEW OF SYSTEMS: Ms. Domínguez denies nausea, vomiting, diarrhea, constipation, fever, chil ls, shortness of breath, chest pain, skin breakdown, rash, incontinence of bowel or bladder , saddle anesthesia, lymph gland swelling or unexplained weight loss. All other review of s ystems negative. PHYSICAL EXAMINATION VITAL SIGNS: Heart rate 72, respiratory rate 12, blood pressure 150/86, weight 97 pounds, height 5 feet, 0 inches. GENERAL: No acute distress. Alert and oriented to person, place, time and situation. Accom panied by a daughter. HEENT: Extraocular muscles intact. Pupils equally reactive to light and accommodation. Scle concha clear. NECK: Normal range of motion. Axial loading test negative. Spurling's test negative. HEART : Regular rate and rhythm. No murmurs, no gallops. LUNGS: Clear to auscultation bilaterally. No wheezing, no crackles. ABDOMEN: Nontender, no ndistended. Positive for bowel sounds. Thin. BACK: Slight asymmetry. No focal tenderness. S eated straight leg raise positive on the right, negative on the left. Eleuterio's test negati ve bilaterally. EXTREMITIES: No clubbing, cyanosis or edema. NEUROLOGICAL: Subjective decreased sensation over right S1 dermatome. Patellar reflexes are 1+ bilaterally. Achilles reflexes 1+ bilaterally. No clonus to either ankle. Strength is 4 out of 5 with knee flexion on the right, compared to 5 out of 5 with knee flexion on the l eft. Knee extension, ankle dorsiflexion, ankle plantar flexion and extensor hallucis longus was 5 out of 5 bilaterally. DATABASE: Lumbar MRI from January 16, 2013, imaging was personally reviewed by me. This imagi ng was reviewed in detail with Ms. Domínguez and her daughter today. This imaging demonstrate s multilevel degenerative disk disease. There is grade 1 anterolisthesis of L4 on L5. There is posterior ligament hypertrophy and osteophyte complex, which contributes towards lumbar spinal stenosis. There is lumbar spinal stenosis and L2-3, L3-4 and L4-5, to varying degre es. It appears to be most severe at L4-5. There is some significant neural foraminal narrow ing due to lateral disk herniation and osteophyte complex at L3-4. ASSESSMENT 1. LUMBAR SPINAL STENOSIS, ICD-9 724.02. 2. 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 3. LUMBALGIA, ICD-9 724.2. 4. LUMBAR RADICULOPATHY, ICD-9 724.4. PLAN 1. Ms. Domínguez has failed nortriptyline. This medication was discontinued. She failed secon danielle to side effects. She has not tried gabapentin. She will be started on gabapentin and t apered up at slow dose. Gabapentin may be helpful for managing neuropathic pain. It may als o help her use less oxycodone. There is synergistic effect when combining gabapentin and ox ycodone. This may allow her to reduce oxycodone dosing. She would prefer to use less oxycod one, if possible. 2. She will continue participating in aquatic-based physical therapy. She has recently just started. Uncertain whether or not it will offer any long-term benefit. S he had substantial reduction in pain with recent epidural steroid injection. She is current ly only a week out from epidural steroid injection. Full benefit and effects of epidural st eroid injection are yet to be known. May consider repeating epidural steroid injection in t he future. 3. She will return to clinic in a month's time. If symptoms worsen or persist, f uture treatment considerations may include repeat epidural steroid injection versus neurosu rgical intervention. So far she has tried nortriptyline. She has had benefit from epidural steroid injection. Whether or not she has benefit from gabapentin remains to be determined. TOTAL TIME SPENT: Greater than 30 minutes was spent [id number]-[id number] today, over half of which was spent formulating and discussing her medical treatment plan. Thank you for allowing me to be involved in the care of your patient. If you have any quest ions regarding the care of Ms. Domínguez, please do not hesitate to call. Dillon Ann Jr, MD [facility] JOB #: [id number] cc: Ba Mitchell MD Tdocumented in this encounter Plan of Treatment Not on filedocumented as of this encounter Visit Diagnoses + + | Diagnosis | + + | Lumbar spinal stenosis - Primary Spinal stenosis, lumbar region, without neurogenic | | claudication | + + | Lumbar degenerative disc disease Degeneration of lumbar or lumbosacral intervertebral | | disc | + + | Lumbalgia Lumbago | + + | Lumbar radiculopathy Thoracic or lumbosacral neuritis or radiculitis, unspecified | + + documented in this encounter"
--- OUTSIDE RECORDS SUMMARY | ~2019-09-23 | XMS | Encounter Summary ---
Demographics + + + | Address | [address] | | | [place] [address] | + + + | Home Phone | | + + + | Preferred Language | Unknown | + + + | Marital Status | | + + + | Bahai Affiliation | Unknown | + + + | Race | Unknown | + + + | Ethnic Group | Unknown | + + + Author + + + | Author | [facility] | | | and [place] | + + + | Organization | [facility] | | | and [place] | + + + | Address | Unknown | + + + | Phone | Unavailable | + + + Support + + + + + | Name | Relationship | Address | Phone | + + + + + | Vicente Domínguez | NEGIN | [place] | | | | | [phone] | | + + + + + | Dank Domínguez | ECON | [address] | | | | | [place] | | | | | [address] | | + + + + + Care Team Providers + +------+ + | Care Buffer Nickel Name | Role | Phone | + +------+ + | Yfn Mitchell MD | PCP | | + +------+ + Encounter Details +--------+ + + + + | Date | Type | Department | Care Team | Description | +--------+ + + + + | 03/09/ | Hospital | [facility] | Kev Dubois | | | 2012 | Encounter | MED CTR XRAY [address] | | | | | [place] | [place], [place] | | | | | [place] [address] | [id number] | | | | | [phone] | | | +--------+ + + + [...] + + documented as of this encounter Medications at Time of Discharge + + + +---------+ + + | Medication | Sig | Dispensed | Refills | Start | End Date | | | | | | Date | | + + + +---------+ + + | lovastatin | Take 20 mg by mouth | | 0 | | | | (MEVACOR) 20 mg | nightly. | | | | | | tablet | | | | | | + + + +---------+ + + | metoprolol | Take 25 mg by mouth | | 0 | | | | tartrate (LOPRESSOR) | 2 times daily. | | | | | | 25 mg tablet | | | | | | + + + +---------+ + + | omeprazole | Take 20 mg by mouth | | 0 | | | | (PRILOSEC) 20 mg | every morning | | | | | | capsule | (before breakfast). | | | | | + + + +---------+ + + | meloxicam (MOBIC) | Take 15 mg by mouth | | 0 | | | | 15 mg tablet | Daily. | | | | 3 | + + + +---------+ + + | methocarbamol | Take 500 mg by mouth | | 0 | | | | (ROBAXIN) 500 mg | 4 times daily. | | | | 3 | | tablet | | | | | | + + + +---------+ + + | nortriptyline | 1 by mouth at | 120 | 1 | 02/18/20 | | | (PAMELOR) 10 MG | bedtime for 7 days; | capsule | | 13 | 3 | | capsuleIndications: | then 2 at bedtime | | | | | | Lumbar radiculopathy | for 7 days; then 3 | | | | | | | at bedtime for 7 | | | | | | | days; then 4 at | | | | | | | bedtime | | | | | + + + +---------+ + + | oxyCODONE | Take 5 mg by mouth | | 0 | | | | (ROXICODONE) 5 mg | every 4 hours as | | | | 3 | | tablet | needed. | | | | | + + + +---------+ + + documented as of this encounter Plan of Treatment Not on filedocumented as of this encounter Procedures + +--------+ + + + | Procedure Name | Priori | Date/Time | Associated Diagnosis | Comments | | | ty | | | | + +--------+ + + + | FL EPIDURAL STEROID | Routin | 03/10/2013 | | Results for this | | INJECTION LUMBAR | e | 1:46 PM | | procedure are in the | | TRANSFORAMINAL | | PDT | | results section. | + +--------+ + + + documented in this encounter Results FL KARENA Lumbar Transforaminal (03/10/2013 1:46 PM PDT) + + | Specimen | + + | | + + + + + | Narrative | Performed At | + + + | [facility] | [place] | | Department [address] | [facility] | | [ rep [address]] [ rep [facility] | | [facility]] Signed | - IMAGING | | | | | Patient Name: ILDEFONSO DOMÍNGUEZ | | | Physician: RUPA : [id number] Age: 82 Sex: F Unit | | | #: [id number] Exam Date: 03/09/13 Location: | | | IMG.INV Report #: [id number] Page: | | | %(RAD)RES..mtdd.print.filter("pg") of %(RAD) | | | RES..mtdd.print.filter("tpg") | | | | | | Accession Number: [id number] | | | FLUOROSCOPICALLY GUIDED BILATERAL EPIDURAL STEROID INJECTIONS | | | CLINICAL HISTORY: Lumbar radiculopathy. Ms. Fernando | | | Sang presents to the fluoroscopy suite for fluoroscopically-guided | | | bilateral L5-S1 transforaminal epidural steroid injection as part of | | | conservative management for chronic pain with lumbar radiculopathy | | | and degenerative disk disease. After informed consent was obtained, | | | the patient lay in the prone position on the fluoroscopy table. The | | | area was identified under fluoroscopic guidance. The area was | | | prepped and draped in sterile fashion. A 25 gauge 1.5 inch needle was | | | inserted into this region and approximately 3 mL of buffered 1% | | | lidocaine was infused and a 22 gauge spinal needle was inserted into | | | the posterior superior transforaminal space bilaterally and advanced | | | into the epidural space under fluoroscopic guidance. Confirmation | | | into the joint spaces was obtained with infusion of approximately 1 | | | mL of Isovue which showed outline of the facet joints. Then a | | | combination of 2 mL 1% Lidocaine and 2 mL of 6 mg/mL Celestone was | | | infused and divided between the two sides. The patient tolerated the | | | procedure well without complications. Pre and post procedure blood | | | pressure were stable. The patient was given verbal as well as | | | written followup instructions. The patient reported no significant | | | change in pain. Prior to the start of the procedure, the | | | following were performed and verified including correct patient | | | identity, correct site/side marked and visible, agreement of the | | | procedure to be done, correct patient positioning and an accurate | | | procedure consent form. Any safety precautions based on clinical | | | history and/or medication use have been addressed. I | | | personally performed the procedure above. COMMENT: | | | . Dictated Date/Time: | | | 03/10/2013 13:46 Transcribed Date/Time: 03/10/2013 14:11 | | | Director Of Photography: <<Signature on File>> | | | Kev | | | Reuben Dubois MD03/31/13 [id number] <Electronically signed by Kev Alexis | | | Silvino VITALE> Kev Dubois MD 03/10/13 8586 | | | Director Of Photography: Dionte Easley03/10/13 1411 | | | | | + + + + + + + + | Performing | Address | City/State/Zipcode | Phone Number | | Organization | | | | + + + + + | [facility] | [address] | [place] | [phone] | | [facility] | | [address] | | | - IMAGING | | | | + + + + + documented in this encounter Visit Diagnoses Not on filedocumented in this encounter
--- OUTSIDE RECORDS SUMMARY | ~2019-09-23 | XMS | Clinical Summary ---
Demographics + + + | Address | [address] | | | [place] [address] | + + + | Home Phone | | + + + | Preferred Language | Unknown | + + + | Marital Status | | + + + | Restorationist Affiliation | Unknown | + + + | Race | Unknown | + + + | Ethnic Group | Unknown | + + + Author + + + | Author | [facility] | | | and [place] | + + + | Organization | [facility] | | | and [place] | + + + | Address | Unknown | + + + | Phone | Unavailable | + + + Support + + + + + | Name | Relationship | Address | Phone | + + + + + | Vicente Domínguez | NEGIN | [place] | | | | | [phone] | | + + + + + | Dank Domínguez | ECON | [address] | | | | | [place] | | | | | [address] | | + + + + + Care Team Providers + +------+ + | Care Sales Research Analyst Name | Role | Phone | + [...] +--------+ +---------+--------+ | MEDICARE | MEDICA | [id number] | 01/24/20 | [phone] | | Medica | | | RE | | 13-Pre | 5 | | re | | | PART A | | sent | | | | | | AND B | | | | | | + +--------+ +--------+ +---------+--------+ | AARP | AARP | [id number] | | [phone] | | Indemn | [...] | 1930 | [phone] | [place] [address] | | | kat | | | 6 (Home) | | + +--------+ +--------+ + + Advance Directives + + + + + | Type | Date Recorded | Patient | Explanation | | | | Field Agent | | + + + + + | Power of | | | | | Waste Examiner | | | | + + + + + | Advance | | | | | Directive | | | | + + + + +"
--- OUTSIDE RECORDS SUMMARY | ~2019-09-23 | XMS | Encounter Summary ---
Demographics + + + | Address | [address] | | | [place] [address] | + + + | Home Phone | | + + + | Preferred Language | Unknown | + + + | Marital Status | | + + + | Judaism Affiliation | Unknown | + + + | Race | Unknown | + + + | Ethnic Group | Unknown | + + + Author + + + | Author | [facility] | | | and [place] | + + + | Organization | [facility] | | | and [place] | + + + | Address | Unknown | + + + | Phone | Unavailable | + + + Support + + + + + | Name | Relationship | Address | Phone | + + + + + | Vicente Domínguez | NEGIN | [place] | | | | | [phone] | | + + + + + | Dank Domínguez | ECON | [address] | | | | | [place] | | | | | [phone] | | + + + + + Care Team Providers + +------+ + | Care Air Tester Name | Role | Phone | + +------+ + | Yfn Mitchell MD | PCP | | + +------+ + Reason for Visit + + + | Reason | Comments | + + + | Buttocks Pain | right | + + + | Leg Pain | right | + + + Encounter Details +--------+---------+ + + + | Date | Type | Department | Care Team | Description | +--------+---------+ + + + | 03/28/ | Office | [facility] | Dillon Ann, | Anticonvulsant-induc | | 2012 | Visit | MEDICINE | MD [address] | ed dizziness | | | | [address] | [place] | (Primary Dx); Lumbar | | | | [address] | [address] | spinal stenosis; | | | | [place] [address] | | Lumbar degenerative | | | | [phone] | | disc disease; | | | | | | Lumbalgia; Lumbar | | | | | | radiculopathy; | | | | | | Constipation due to | | | | | | pain medication | +--------+---------+ + + + Social History [...] + + + | Blood Pressure | 104/58 | 03/28/2013 10:20 AM | | | | | PDT | | + + + + + | Pulse | 68 | 03/28/2013 10:20 AM | | | | | PDT | | + + + + + | Temperature | - | - | | + + + + + | Respiratory Rate | 12 | 03/28/2013 10:20 AM | | | | | PDT | | + + + + + | Oxygen Saturation | - | - | | + + + + + | Inhaled Oxygen | - | - | | | Concentration | | | | + + + + + | Weight | 44 kg (97 lb) | 03/28/2013 10:20 AM | | | | | PDT | | + + + + + | Height | 152.4 cm (5') | 03/28/2013 10:20 AM | | | | | PDT | | + + + + + | Body Mass Index | 18.94 | 03/28/2013 10:20 AM | | | | | PDT | | + + + + + documented in this encounter Patient Instructions Patient Instructions Dillon Ann MD - 03/28/2013 10:58 AM PDTContinue Gabapentin for 2 -3 more days. If dizziness persists then stop taking Gabapentin. If dizziness resolves, co ntinue tapering up gabapentin as directed. Only increase the dose of gabapentin when all si de effects have resolved. Side effect of dizziness may return temporarily after increasing the dose. If you stop taking gabapentin, then start taking Lyrica. Taper up the Lyrica as directed.E lectronically signed by Dillon Ann MD at 03/28/2013 11:00 AM PDT documented in this encounter Progress Notes Dillon Ann MD - 03/28/2013 11:01 AM PDTThis office note has been dictated. Job ID# [id number] signed by Dillon Ann MD at 03/28/2013 11:16 AM PDTNathalia Nieves RN - 03/28/2013 10:24 AM PDTLow back/right buttock pain worse x 1 week. Electronically si gned by Nathalia Nieves RN at 03/28/2013 11:00 AM PDTDillon Ann MD - 03/28/2013 12:00 AM PDT [facility] [address] [place], [place] [address] FAX: [phone] OFFICE VISIT REQUESTING PHYSICIAN: Yfn Mitchell MD PATIENT IDENTIFICATION: An 82-year-old female with history of lumbar spinal stenosis. Some improvement with recent epidural steroid injection. Recently started on medication gabapent in. Episode of dizziness and nausea for the last 2 days. HISTORY OF PRESENT ILLNESS: Miss Domínguez returns to clinic earlier than previously schedule d at her request. Approximately 2 days ago, she started to experience some dizziness. Yeste rday, 03/27/2013, her symptoms are bothersome enough that her called an ambulance f or her. She went to the ER and was worked up. She was fully evaluated and deemed to be heal thy and normal. It was explained to her that gabapentin may have side effect of dizziness a nd nausea. It is felt to be that this was the source of her symptoms. She subsequently has slightly decreased the dose of gabapentin and her dizziness has improved, but not resolved. She indicates that she does not have dizziness currently. She states that dizziness only s eems to last for an hour or 2 after taking her dose of gabapentin. Currently, she is taking a dose of gabapentin 300 mg twice per day. Her dizziness was much worse when she had tried taking it 3 times per day. She indicates that the dizziness today seems to be much improve d compared to yesterday. She has not noticed any change in her pain so far. She denies any new weakness in her legs. She states that her current pain level is a 7 or 8/10 on a numeri jag pain scale. She states the pain is constant in timing. Pain is increased with sitting. Pain is reduced with oxycodone. Pain radiates into right lower extremity. Pain is over the right buttock. She denies any new numbness, paresthesia or weakness in the leg. She reports some constipation. She relates this to her oxycodone. She denies saddle anesthesia or inco ntinence of bowel or bladder. ALLERGIES 1. ROMI INHIBITORS. 2. CORTICOSTEROIDS. 3. TRAMADOL. CURRENT MEDICATIONS 1. Gabapentin 300 mg 1 tablet twice per day. 2. Mevacor 20 mg nightly. 3. Meloxicam 15 mg daily. 4. Robaxin 500 mg 4 times daily. 5. Lopressor 25 mg 2 times daily. 6. Omeprazole 20 mg daily. 7. Oxycodone 5 mg 3 times per day. REVIEW OF SYSTEMS: Ms. Domínguez denies nausea at this time, but she has had some wheezing r ecently. She denies any vomiting now or in the past. She did have dizziness. She denies feve r, chills, shortness of breath, chest pain, skin breakdown, rash, incontinence of bowel or bladder, or saddle anesthesia. She has had some constipation related to oxycodone. All othe r review of systems negative. She denies tinnitus or hearing loss. PHYSICAL EXAMINATION VITAL SIGNS: Heart rate 60, respiratory rate 12, blood pressure 104/58, weight 97 pounds, height 5 foot. GENERAL: No acute distress. No objective signs of pain or discomfort, smiling, laughing, p leasant, comfortable, accompanied by . HEENT: Extraocular muscles intact. Sclerae clear. Pupils equal, reactive to light and acco mmodation. NECK: No nystagmus. Coordination intact with enpptb-dx-rgbj testing in upper extremities. Coordination intact in lower extremities with zhng-oi-fkdq slide. Romberg test negative. HE ART: Regular rate and rhythm. No murmurs, no gallops. LUNGS: Clear to auscultation bilaterally. No wheezing, no crackles. BACK: Symmetric. Seate d straight leg raise equivocal on the right, negative on the left. Eleuterio's test negative bilaterally. Mild tenderness to palpation over right low back and right buttock. NEUROLOGICAL: Exam demonstrates decreased sensation over right S1 dermatome. Reflexes are 1 + over patellae and Achilles bilaterally. No clonus to either ankle. There is 4/5 strength with knee flexion on the right compared to 5/5 on the left. The remainder of strength is no rmal in both lower extremities. LABORATORY DATA: Lumbar MRI from 01/16/2013, imaging personally reviewed by me. This imagin g demonstrates multilevel degenerative disk disease. There is grade 1 anterolisthesis of L5 on L4. There is posterior ligament hypertrophy contributing towards lumbar spinal stenosis . There is lumbar spinal stenosis at L2-L3. L3-L4 and L4-5. Most severe at L4-L5. There is significant neural foraminal narrowing due to lateral disk herniation and osteophyte comple x at L3-L4. ASSESSMENT 1. ANTICONVULSANT-INDUCED DIZZINESS, ICD-9 780.4. 2. LUMBAR SPINAL STENOSIS, ICD-9 724.02. 3. 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 4. LUMBALGIA, ICD-9 724.2. 5. LUMBAR RADICULOPATHY, ICD-9 724.4. 6. CONSTIPATION due to pain medication, ICD-9 564.09. PLAN: Ms. Domínguez was advised to take docusate cbwh-bng-tovnsij twice per day. She is advis ed that if constipation persists, she may take Senna once per day at night. She is advised that since dizziness is already improving on current dose of gabapentin that she may wait 2 or 3 more days on current dose of gabapentin to see if the dizziness resolves. We discusse d that with increasing dose or starting new dose of gabapentin, often a person may feel diz zy, but the side effect of dizziness seems to resolve within a few days. We discussed that if dizziness does not resolve within the next 2 or 3 days, that gabapentin should be comple tely discontinued. She is advised to continue with physical therapy. She may continue using oxycodone p.r.n. We discussed that she may reduce oxycodone if tolerated in the future. Sh e failed nortriptyline due to side effects in the past. If she ends up having to discontinu e gabapentin because dizziness persists, she will start new medication Lyrica. Lyrica is in the same family medication, but seems to cause somewhat less side effects such as dizzines s. She was prescribed Lyrica 50 mg 1 at bedtime for a week, then 1 twice a day for a week, then one 3 times per day. Once again, she will only start Lyrica if she ends up having to q uit gabapentin. She will only quit the gabapentin if dizziness does not resolve within the next 2 to 3 days. If dizziness does completely resolve, she may continue tapering up gabape ntin as tolerated in the future. Approximately 30 minutes was spent heqm-zu-cyfj today with Ms. Domínguez, over half of which was spent formulating and discussing her medical treatment plan. Thank you for allowing me to be involved in the care of your patient. If you have any quest ions regarding the care of Ms. Domínguez, please do not hesitate to call. Dillon Ann Jr, MD ARACELI / CK JOB #: [id number] cc: Ba Mitchell MD Tdocumented in this encounter Plan of Treatment Not on filedocumented as of this encounter Visit Diagnoses + + | Diagnosis | + + | Anticonvulsant-induced dizziness - Primary Dizziness and giddiness | + + | Lumbar spinal stenosis Spinal stenosis, lumbar region, without neurogenic | | claudication | + + | Lumbar degenerative disc disease Degeneration of lumbar or lumbosacral intervertebral | | disc | + + | Lumbalgia Lumbago | + + | Lumbar radiculopathy Thoracic or lumbosacral neuritis or radiculitis, unspecified | + + | Constipation due to pain medication Other constipation | + + documented in this encounter"
--- OUTSIDE RECORDS SUMMARY | ~2019-09-23 | XMS | Encounter Summary ---
Demographics + + + | Address | [address] | | | [place] [address] | + + + | Home Phone | | + + + | Preferred Language | Unknown | + + + | Marital Status | | + + + | Buddhist Affiliation | Unknown | + + + | Race | Unknown | + + + | Ethnic Group | Unknown | + + + Author + + + | Author | [facility] | | | and [place] | + + + | Organization | [facility] | | | and [place] | + + + | Address | Unknown | + + + | Phone | Unavailable | + + + Support + + + + + | Name | Relationship | Address | Phone | + + + + + | Vicente Domínguez | NEGIN | [place] | | | | | [phone] | | + + + + + | Dank Domínguez | ECON | [address] | | | | | [place] | | | | | [address] | | + + + + + Care Team Providers + +------+ + | Care Security Supervisor Name | Role | Phone | + [...] + + | 03/28/ | Office | [facility] | Dillon Ann, | Anticonvulsant-induc | | 2012 | Visit | MEDICINE | MD [address] | ed dizziness | | | | [address] | [place] | (Primary Dx); Lumbar | | | | [address] | [address] | spinal stenosis; | | | | [place] [address] | | Lumbar degenerative | | | | [phone] | | disc disease; | | | [...] office note has been dictated. Job ID# [id number] signed by Dillon Ann MD at 03/28/2013 11:16 AM PDTNathalia Nieves RN - 03/28/2013 10:24 AM PDTLow back/right buttock pain worse x 1 week. Electronically si gned by Nathalia Nieves RN at 03/28/2013 11:00 AM PDTDillon Ann MD - 03/28/2013 12:00 AM PDT [facility] [address] [place], [place] [address] FAX: [phone] OFFICE VISIT REQUESTING PHYSICIAN: Yfn Mitchell MD [...] mmodation. NECK: No nystagmus. Coordination intact with rvqcbe-hc-adui testing in upper extremities. Coordination intact in lower extremities with fuzo-gw-ivwl slide. Romberg test negative. HE ART: Regular [...] Ms. Domínguez was advised to take docusate jcsr-koy-tinozno twice per day. She is advis ed [...] the future. Approximately 30 minutes was spent xzlw-ky-iidb today with Ms. Domínguez, over half of which was spent formulating and discussing her medical treatment plan. Thank you for allowing me to be involved in the care of your patient. If you have any quest ions regarding the care of Ms. Domínguez, please do not hesitate to call. Dillon Ann Jr, MD ARACELI / CK JOB #: [id number] cc: Ba Mitchell MD Tdocumented in this [...]
--- OUTSIDE RECORDS SUMMARY | ~2019-09-23 | XMS | Encounter Summary ---
Demographics + + + | Address | [address] | | | [place] [address] | + + + | Home Phone | | + + + | Preferred Language | Unknown | + + + | Marital Status | | + + + | Zoroastrian Affiliation | Unknown | + + + | Race | Unknown | + + + | Ethnic Group | Unknown | + + + Author + + + | Author | [facility] | | | and [place] | + + + | Organization | [facility] | | | and [place] | + + + | Address | Unknown | + + + | Phone | Unavailable | + + + Support + + + + + | Name | Relationship | Address | Phone | + + + + + | Vicente Domínguez | NEGIN | [place] | | | | | [address] | | + + + + + | Dank Domínguez | ECON | [address] | | | | | [place] | | | | | [address] | | + + + + + Care Team Providers + +------+ + | Care Dance Historian Name | Role | Phone | + [...] | | | | | stenosis | [address] | | | | | | | [place], | | | | | | | [place] [address] | | | | | | | Phone: | | | | | | | [phone] | | | | | | | Fax: | | | | | | | [phone] | | +--------+ + + + + + Encounter Details +--------+---------+ + + + | Date | Type | Department | Care Team | Description | +--------+---------+ + + + | 07/03/ | Office | [facility] | Dillon Ann, | Lumbar spinal | | 2012 | Visit | MEDICINE | [address] | stenosis (Primary | | | | REHABILITATION [address] | [place] | Dx); Lumbar | | | | [address] [place] | [address] | degenerative disc | | | | [place] [address] | | disease; Lumbalgia; | | | | [phone] | | Lumbar | | | | | | radiculopathy; | | | | | | Constipation | +--------+---------+ + + + Social History [...] + + + | Blood Pressure | 98/52 | 04/26/2013 9:25 AM | | | | | PDT | | + + + + + | Pulse | 62 | 04/26/2013 9:25 AM | | | | | PDT | | + + + + + | Temperature | - | - | | + + + + + | Respiratory Rate | 14 | 04/26/2013 9:25 AM | | | | | PDT | | + + + + + | Oxygen Saturation | - | - | | + + + + + | Inhaled Oxygen | - | - | | | Concentration | | | | + + + + + | Weight | 44.5 kg (98 lb) | 04/26/2013 9:25 AM | | | | | PDT | | + + + + + | Height | 152.4 cm (5') | 04/26/2013 9:25 AM | | | | | PDT | | + + + + + | Body Mass Index | 19.14 | 04/26/2013 9:25 AM | | | | | PDT | | + + + + + documented in this encounter Patient Instructions Patient Instructions Dillon Ann MD - 04/26/2013 9:57 AM PDTContinue physical therapy . Please take the prescribed medication Gabapentin. Taper up the dose of the medication as di rected. Stop tapering up the medication at the lowest effective dose. If you have side eff ects to the medication, reduce the dose of the medication to the last dose that you were abl e to tolerate without side effects. documented in this encounter Progress Notes Dillon Ann MD - 04/26/2013 9:58 AM PDTThis office note has been dictated. Job ID# [id number] signed by Dillon Ann MD at 04/26/2013 11:14 AM Renee Gabriel RN - 04/26/2013 9:30 AM PDTPatient states that pain has improved and that her gabapentin is helping. Patient continues to take docusate nightly, which is helping. Patient states th at she has experience no further dizziness. Dillon Heard MD - 04/26/2013 12:00 AM PDT [facility]YSICAL MEDICINE AND REHAB [address] [place] [address] FAX: [phone] OFFICE VISIT PHYSICAL MEDICINE REHABILITATION PROGRESS NOTE CONSULT REQUESTED BY: Yfn Mitchell MD DATE OF SERVICE: 04/26/2013 PATIENT IDENTIFICATION: An 82-year-old female with history of lumbar spinal stenosis. HISTORY OF PRESENT ILLNESS: The patient was last seen by me 03/28/2013. At that time she r eported having some dizziness while taking gabapentin. She was asked to give the medication a few more days to see if the dizziness resolved. She returns to clinic today to review ma nagement of her symptoms. At this point she continues to take gabapentin. She reports that all dizziness has resolved. She indicates that the dizziness only lasted a day or 2 after s tarting the medication, but after that all dizziness had subsided. She is currently taking gabapentin and tolerating it without any side effects. She has successfully tapered gabapent in up to 300 mg 1 in the morning, 1 in the afternoon, and 2 at night. She indicates that it does seem to be making a significant improvement and impact in reducing her pain. She is t aking oxycodone. She has been trying to take it less. She reports that with the gabapentin on board she has been able to successfully reduce her oxycodone to 1 tablet twice per day. She eventually would like to reduce it to once per day and even potentially come off of oxy codone if possible. She indicates that her current pain level is a 4 or 5/10 on a numerical pain scale. She de scribes this pain as mild and tolerable. She states her pain is constant in timing. She sta christian her pain is dull in quality. She states her pain was increased by physical activity. She states that she spent more than several hours cooking a special meal 1 day and it resulted in increased back pain. She states that her pain is decreased by participating in aquatic- based physical therapy as well as with current medication. She denies saddle anesthesia. Sh e denies incontinence of bowel or bladder. She denies new progressive weakness in either lo wer extremity. ALLERGIES 1. ROMI INHIBITORS. 2. CORTICOSTEROIDS. 3. TRAMADOL. CURRENT MEDICATIONS 1. Gabapentin 300 mg, 1 in the morning, 1 in the afternoon, and 2 at night. 2. Oxycodone 5 mg, 1 tablet twice per day. 3. Prilosec 20 mg daily. 4. Lopressor 25 mg twice daily. 5. Robaxin p.r.n. 6. Mobic 15 mg daily. 7. Mevacor 20 mg nightly. 8. Docusate 250 mg nightly. REVIEW OF SYSTEMS: Ms. Domínguez denies nausea, vomiting, diarrhea, constipation, fever, chil ls, shortness of breath, chest pain, skin breakdown, rash, incontinence of bowel or bladder , saddle anesthesia, lymph gland swelling, or unexplained weight loss. All other review of systems negative. PHYSICAL EXAMINATION VITAL SIGNS: Heart rate 64, respiratory rate 12, blood pressure 98/52, weight 98 pounds, he ight 5 feet 0 inches. GENERAL: No acute distress. Alert and oriented to person, place, time and situation. Accom panied by . HEENT: Extraocular muscles intact. Pupils equally reactive to light and accommodation. Scle concha clear. NECK: Normal range of motion. Spurling's test negative. Axial loading test negative. HEART : Regular rate and rhythm. No murmurs, no gallops. LUNGS: Clear to auscultation bilaterally. No wheezing, no crackles. ABDOMEN: Nontender. Po sitive for bowel sounds. Nondistended. BACK: Symmetric. Seated straight leg raise negative bilaterally. Eleuterio's test negative bilaterally. Mild tenderness to palpation over right l ow back. NEUROLOGICAL: Exam demonstrates subjective decreased sensation over right S1 derma tome. Remainder of sensation intact in both lower extremities. Reflexes 1+ over patellae an d Achilles bilaterally. No clonus to either ankle. There is 4/5 strength with knee flexion on the right compared to 5/5 on the left. There is 5/5 knee extension, ankle dorsiflexion, ankle plantar flexion and extensor hallucis longus in both lower extremities. DATABASE: There is no new imaging or laboratory data available for review at this time. IMPRESSION 1. LUMBAR SPINAL STENOSIS, ICD-9 724.02. 2. 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 3. LUMBALGIA, ICD-9 724.2. 4. LUMBAR RADICULOPATHY, ICD-9 724.4. 5. CONSTIPATION - RESOLVED, ICD-9 564.00. PLAN: The patient is advised to continue taking Docusate to manage her constipation. In an effort to further manage and reduce her pain gabapentin will be tapered up further as tolerated. She is prescribed gabapentin 300 mg 2 in the morning, 1 in the afternoon, and 2 at night for 14 days, then 2 tablets 3 times per day. She is advised to continue with phys ical therapy. She is currently participating in aquatic-based physical therapy. Once physic al therapy is completed she has been asked to transition to home exercise program. I may co nsider repeating epidural steroid injections in the future. We discussed that they are safe to repeat 3 to 4 times per year. She will return to the clinic in 8 weeks' time to review management of her symptoms and for medication refills. Currently, pain is tolerable, improv ing. She plans to cut back further on oxycodone. She plans to reduce to 1 tablet per day an d eventually maybe discontinue the medication if possible. Approximately 25 minutes was spent [id number] today with Ms. Domínguez, over half of which was spent formulating and discussing her medical treatment plan. Thank you for allowing me to be involved in the care of your patient. If you have any questions regarding the care of Ms. Domínguez please do not hesitate to call. Dillon Ann Jr, MD [facility] / YE JOB #: [id number] cc: Ba Mitchell MD Tdocumented in this encounter Plan of Treatment + + +--------+ + + | Name | Type | Priori | Associated Diagnoses | Order Schedule | | | | ty | | | + + +--------+ + + | Ambulatory referral | Outpatient | Routin | Lumbar spinal | 1 Occurrences | | to Physical Therapy | Referral | e | stenosis | starting 04/26/2013 | | | | | | until 04/26/2014 | + + +--------+ + + documented [...] radiculitis, unspecified | + + | Constipation Unspecified constipation | + + documented in this encounter"
--- OUTSIDE RECORDS SUMMARY | ~2019-09-23 | XMS | Encounter Summary ---
Demographics + + + | Address | [address] | | | [place] [address] | + + + | Home Phone | | + + + | Preferred Language | Unknown | + + + | Marital Status | | + + + | Buddhist Affiliation | Unknown | + + + | Race | Unknown | + + + | Ethnic Group | Unknown | + + + Author + + + | Author | [facility] | | | and [place] | + + + | Organization | [facility] | | | and [place] | + + + | Address | Unknown | + + + | Phone | Unavailable | + + + Support + + + + + | Name | Relationship | Address | Phone | + + + + + | Vicente Domínguez | NEGIN | [place] | | | | | [address] | | + + + + + | Dank Domínguez | ECON | [address] | | | | | [place] | | | | | [address] | | + + + + + Care Team Providers + +------+ + | Care Aboriginal Education Worker Coordinator Name | Role | Phone | + [...] + + | 03/15/ | Office | [facility] | Dillon Ann, | Lumbar spinal | | 2012 | Visit | MEDICINE | [address] | stenosis (Primary | | | | REH[address] | [place] | Dx); Lumbar | | | | [address] [place] | [address] | degenerative disc | | | | [place] [address] | | disease; Lumbalgia; | | | | [phone] | | Lumbar radiculopathy | +--------+---------+ + [...] office note has been dictated. Job ID# [id number] signed by Dillon Ann MD at 03/15/2013 3:11 PM Nathalia Zapata RN - 03/15/2013 10:12 AM PDTLow back pain improved slightly. Dillon Heard MD - 03/15/2013 12:00 AM PDT PHYSICAL MEDICINE AND REHAB [address] [place] [address] FAX: [phone] OFFICE VISIT PHYSICAL MEDICINE REHABILITATION PROGRESS NOTE [...] SPENT: Greater than 30 minutes was spent [id number] today, over half of which was spent formulating and discussing her medical treatment plan. Thank you for allowing me to be involved in the care of your patient. If you have any quest ions regarding the care of Ms. Domínguez, please do not hesitate to call. Dillon Ann Jr, MD [facility] JOB #: [id number] cc: Ba Mitchell MD Tdocumented in this [...]
--- OUTSIDE RECORDS SUMMARY | ~2019-09-23 | XMS | Encounter Summary ---
Demographics + + + | Address | [address] | | | [place] [address] | + + + | Home Phone | | + + + | Preferred Language | Unknown | + + + | Marital Status | | + + + | Holiness Affiliation | Unknown | + + + | Race | Unknown | + + + | Ethnic Group | Unknown | + + + Author + + + | Author | [facility] | | | and [place] | + + + | Organization | [facility] | | | and [place] | + + + | Address | Unknown | + + + | Phone | Unavailable | + + + Support + + + + + | Name | Relationship | Address | Phone | + + + + + | Vicente Domínguez | NEGIN | [place] | | | | | [address] | | + + + + + | Dank Domínguez | ECON | [address] | | | | | [place] | | | | | [address] | | + + + + + Care Team Providers + +------+ + | Care Dyeing Machine Back Tender Name | Role | Phone | + +------+ + | Yfn Mitchell MD | PCP | | + +------+ + Encounter Details +--------+ + + + + | Date | Type | Department | Care Team | Description | +--------+ + + + + | 03/09/ | Hospital | [facility] | Kev Dubois | | | 2012 | Encounter | MED CTR XRAY [address] | | | | | [place] | [address] [place], [place] | | | | | [place] [address] | [id number] | | | | | [phone] | | | +--------+ + + + [...] Performed At | + + + | [facility] | [place] | | Department [address] [place] | [facility] | | [ rep [address]] [ rep [facility] | | [facility]] Signed | - IMAGING | | | | | Patient Name: ILEDFONSO DOMÍNGUEZ | | | Physician: RUPA : [id number] Age: 82 Sex: F Unit | | | #: [id number] Exam Date: 03/09/13 Location: | | | IMG.INV Report #: [id number] Page: | | | %(RAD)RES..mtdd.print.filter("pg") of %(RAD) | | | RES..mtdd.print.filter("tpg") | | | | | | Accession Number: [id number] | | | FLUOROSCOPICALLY GUIDED BILATERAL EPIDURAL [...] Transcribed Date/Time: 03/10/2013 14:11 | | | Sales And Marketing Intern: <<Signature on File>> | | | Kev | | | Reuben Dubois MD03/31/13 6108 <Electronically signed by Kev Alexis | | | Silvino VITALE> Kev Dubois MD 03/10/13 [id number] | | | Sales And Marketing Intern: Dionte Easley03/10/13 1411 | | | | | + + + + + + + + | Performing | Address | City/State/Zipcode | Phone Number | | Organization | | | | + + + + + | [facility] | [address] | [place] | [phone] | | [facility] | | [address] | | | - IMAGING | | | | + + + + + documented in this encounter Visit Diagnoses Not on filedocumented in this encounter
--- OUTSIDE RECORDS SUMMARY | ~2019-09-23 | XMS | Encounter Summary ---
Demographics + + + | Address | [address] | | | [place] [address] | + + + | Home Phone | | + + + | Preferred Language | Unknown | + + + | Marital Status | | + + + | Zoroastrian Affiliation | Unknown | + + + | Race | Unknown | + + + | Ethnic Group | Unknown | + + + Author + + + | Author | [facility] | | | and [place] | + + + | Organization | [facility] | | | and [place] | + + + | Address | Unknown | + + + | Phone | Unavailable | + + + Support + + + + + | Name | Relationship | Address | Phone | + + + + + | Vicente Domínguez | NEGIN | [place] | | | | | [address] | | + + + + + | Dank Domínguez | ECON | [address] | | | | | [place] | | | | | [address] | | + + + + + Care Team Providers + +------+ + | Care Accounting Machine Servicer Name | Role | Phone | + +------+ + | Ynf Mitchell MD | PCP | | + +------+ + Reason for Visit + + + | Reason | Comments | + + + | Hip Pain | right | + + + Encounter Details +--------+---------+ + + + | Date | Type | Department | Care Team | Description | +--------+---------+ + + + | 06/28/ | Office | [facility] | Dillon Ann, | Lumbar spinal | | 2012 | Visit | MEDICINE | [address] | stenosis (Primary | | | | REHABILIT[address] | [place] | Dx); Lumbar | | | | [address] [place] | [address] | radiculopathy; | | | | [place] [address] | | Lumbar degenerative | | | | [phone] | | disc disease; | | | [...] office note has been dictated. Job ID# [id number] signed by Dillon Ann MD at 06/28/2013 10:03 AM Renee Gabriel RN - 06/28/2013 9:35 AM PDTPatient complains of 4/10 pain to right hip. States she compl eted PT, and now does exercises at home. Patient has discontinued oxycodone. Dillon Heard MD - 06/28/2013 12: 00 AM PDT PHYSICAL MEDICINE AND REHAB [address] [place] [address] FAX: [phone] OFFICE VISIT PHYSICAL MEDICINE REHABILITATION PROGRESS NOTE [...] of symptoms. Approximately 25 minutes was spent [id number] today with Ms. Domínguez, over half of which was spent formulating and discussing her medical treatment plan. Thank you for allowing me to be involved in the care of your patient. If you have any quest ions regarding the care of Ms. Domínguez, please do not hesitate to call. Dillon Ann Jr, MD [facility] / PAP JOB #: [id number] signed by Dillon Ann MD at 06/29/2013 [...]
--- OUTSIDE RECORDS SUMMARY | ~2019-09-23 | XMS | Encounter Summary ---
Demographics + + + | Address | [address] | | | [place] [address] | + + + | Home Phone | | + + + | Preferred Language | Unknown | + + + | Marital Status | | + + + | Jain Affiliation | Unknown | + + + | Race | Unknown | + + + | Ethnic Group | Unknown | + + + Author + + + | Author | [facility] | | | and [place] | + + + | Organization | [facility] | | | and [place] | + + + | Address | Unknown | + + + | Phone | Unavailable | + + + Support + + + + + | Name | Relationship | Address | Phone | + + + + + | Vicente Domínguez | NEGIN | [place] | | | | | [address] | | + + + + + | Dank Domínguez | ECON | [address] | | | | | [place] | | | | | [address] | | + + + + + Care Team Providers + +------+ + | Care Termite Renewal Inspector Name | Role | Phone | + [...] | | | | | stenosis | [address] | | | | | | | [place], | | | | | | | [place] [address] | | | | | | | Phone: | | | | | | | [phone] | | | | | | | Fax: | | | | | | | [phone] | | +--------+ + + + + + Encounter Details +--------+---------+ + + + | Date | Type | Department | Care Team | Description | +--------+---------+ + + + | 07/03/ | Office | [facility] | Dillon Ann, | Lumbar spinal | | 2012 | Visit | MEDICINE | [address] | stenosis (Primary | | | | REHABILIT[address] | [place] | Dx); Lumbar | | | | [address] [place] | [address] | degenerative disc | | | | [place] [address] | | disease; Lumbalgia; | | | | [phone] | | Lumbar | | | | [...] office note has been dictated. Job ID# [id number] signed by Dillon Ann MD at 04/26/2013 11:14 AM Renee Gabriel RN - 04/26/2013 9:30 AM PDTPatient states that pain has improved and that her gabapentin is helping. Patient continues to take docusate nightly, which is helping. Patient states th at she has experience no further dizziness. Dillon Heard MD - 04/26/2013 12:00 AM PDT PHYSICAL MEDICINE AND REHAB [address] [place] [address] FAX: [phone] OFFICE VISIT PHYSICAL MEDICINE REHABILITATION PROGRESS NOTE [...] equally reactive to light and accommodation. Scle cocnha clear. NECK: Normal range of motion. Spurling's [...] if possible. Approximately 25 minutes was spent [id number]-syfw today with Ms. Domínguez, over half of which was spent formulating and discussing her medical treatment plan. Thank you for allowing me to be involved in the care of your patient. If you have any questions regarding the care of Ms. Domínguez please do not hesitate to call. Dillon Ann Jr, MD [facility] / YE JOB #: [id number] cc: Ba Mitchell MD Tdocumented in this [...]
--- OUTSIDE RECORDS SUMMARY | ~2019-09-23 | XMS | Encounter Summary ---
Demographics + + + | Address | [address] | | | [place] [address] | + + + | Home Phone | | + + + | Preferred Language | Unknown | + + + | Marital Status | | + + + | Mormonism Affiliation | Unknown | + + + | Race | Unknown | + + + | Ethnic Group | Unknown | + + + Author + + + | Author | [facility] | | | and [place] | + + + | Organization | [facility] | | | and [place] | + + + | Address | Unknown | + + + | Phone | Unavailable | + + + Support + + + + + | Name | Relationship | Address | Phone | + + + + + | Vicente Domínguez | NEGIN | [place] | | | | | [address] | | + + + + + | Dank Domínguez | ECON | [address] | | | | | [place] | | | | | [address] | | + + + + + Care Team Providers + +------+ + | Care Fur Blowing Machine Operator Name | Role | Phone [...] | | [address] | [place] [address] | leg pain | | | | [place] | [phone] | | | | | [address] | | | | | | [phone] | | | +--------+ + + + [...]
--- OUTSIDE RECORDS SUMMARY | ~2019-09-23 | XMS | Encounter Summary ---
Demographics + + + | Address | [address] | | | [place] [address] | + + + | Home Phone | | + + + | Preferred Language | Unknown | + + + | Marital Status | | + + + | Hoahaoism Affiliation | Unknown | + + + | Race | Unknown | + + + | Ethnic Group | Unknown | + + + Author + + + | Author | [facility] | | | and [place] | + + + | Organization | [facility] | [...] [place] | | | | | [address] | | + + + + + | Dank Domínguez | ECON | [address] | | | | | [place] | | | | | [address] | | + + + + + Care Team Providers + +------+ + | Care Zinc Plater Name | Role | Phone | + [...] + + | 12/27/ | Office | [facility] | Dillon Ann, | Lumbar spinal | | 2013 | Visit | MEDICINE | [address] | stenosis (Primary | | | | REH[address]IL[address] | [place] | Dx); Lumbar | | | | [address] | [address] | radiculopathy; | | | | [place] [address] | | Lumbar degenerative | | | | [phone] | | disc disease; | | | [...] office note has been dictated. Job ID# [id number] signed by Dillon Ann MD at 12/27/2013 10:33 AM Renee Higgins RN - 12/27/2013 9:42 AM PSTPatient states 0/10 pain to lower back. Dillon Cerrato MD - 12/27/2013 12:00 AM [facility] PHYSICAL MEDICINE AND REHAB [address] [place] [address] FAX: [phone] OFFICE VISIT PHYSICAL MEDICINE REHABILITATION PROGRESS NOTE [...] the future. Approximately 20 minutes was spent isqe-tw-[id number] today with Ms. Domínguez, over half of which was spent formulating and discussing her medical treatment plan. Thank you for allowing me to be involved in the care of your patient. If you have any questions regarding the care of Ms. Domínguez please do not hesitate to call. Dillon Ann Jr, MD [place] / [facility] JOB #: [id number] cc: Ba Mitchell MD Tdocumented in this [...]
--- OUTSIDE RECORDS SUMMARY | ~2019-09-23 | XMS | Encounter Summary ---
Demographics + + + | Address | [address] | | | [place] [address] | + + + | Home Phone | | + + + | Preferred Language | Unknown | + + + | Marital Status | | + + + | Gnosticist Affiliation | Unknown | + + + | Race | Unknown | + + + | Ethnic Group | Unknown | + + + Author + + + | Author | [facility] | | | and [place] | + + + | Organization | [facility] | | | and [place] | + + + | Address | Unknown | + + + | Phone | Unavailable | + + + Support + + + + + | Name | Relationship | Address | Phone | + + + + + | Vicente Domínguez | NEGIN | [place] | | | | | [address] | | + + + + + | Dank Domínguez | ECON | [address] | | | | | [place] | | | | | [address] | | + + + + + Care Team Providers + +------+ + | Care Cellular Biologist Name | Role | Phone | + [...] + + | 02/17/ | Telephone | [facility] | Sami Mc | Other (APPOINTMENT | | 2012 | | NEUROSURGERY [address] | [address] | CANCELLATION) | | | | [address] [facility] [address] | [address] | | | | | [place], [place] | [place] [address] | | | | | [address] | [phone] | | | | | [phone] | | | +--------+ + + + [...]
[~2019-09-23 12:54] MED LIST: ADULT LOW DOSE81 MG PO; DAILY MULTIPLE1 EACH PO; GABAPENTIN300 MG PO; LOVASTATIN20 MG PO; LOVASTATIN40 MG PO; METOPROLOL TART25 MG PO; METOPROLOL TART50 MG PO; OMEPRAZOLE20 MG PO; OXYCODONE HCL5 MG PO; PREDNISONE20 MG PO; VITAMIN B12-FO1 EACH PO; VITAMIN D1000 UNI1 PO
== END 2019-09-23 15:59 | disposition home or self-care (01) ==
LOC: ED 12:54
DX: S01.01XA Laceration without foreign body of scalp, initial encounter (principal); S51.811A Laceration without foreign body of right forearm, initial encounter; I10 Essential (primary) hypertension; E78.00 Pure hypercholesterolemia, unspecified; Z87.891 Personal history of nicotine dependence; Z88.8 Allergy status to other drugs, medicaments and biological substances; Z79.899 Other long term (current) drug therapy; W18.30XA Fall on same level, unspecified, initial encounter
CPT/HCPCS: 70450; 72125; 99284-25